=== PATIENT | male | born 1990 | race Caucasian/White ===

== ENCOUNTER 2016-12-19 09:02 | Emergency (ER) | payer OTHER ==
[~2016-12-19] VITALS: Ht 175.3 cm; Wt 59.5 kg
[2016-12-19 09:04] VITALS: TEMP 36.9; Ht 175.3 cm; Wt 59.5 kg
[2016-12-19] MEDS ORDERED: CEPH500C2 PO (09:53)
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
[2016-12-19 10:02] VITALS: BP 123/73; PULSE 81; O2SAT 98
== END 2016-12-19 10:02 | disposition home or self-care (01) ==
LOC: C.EDB 09:03 → C.EDA 10:02
DX: L73.9 Follicular disorder, unspecified (principal); Z87.891 Personal history of nicotine dependence; Z88.1 Allergy status to other antibiotic agents

== ENCOUNTER 2017-01-05 19:43 | Emergency (ER) | payer OTHER ==
[~2017-01-05] VITALS: Ht 175.3 cm; Wt 59.8 kg
[~2017-01-05 19:43] MED LIST: CEPH500C2 PO
[2017-01-05 19:50] VITALS: TEMP 37; Ht 175.3 cm; Wt 59.8 kg
[2017-01-05] MEDS ORDERED: PERMETHRIN 5% CR 60 GM TUBE EXT ONE (20:00)
[2017-01-05] MEDS ORDERED: ELMCR EXT (20:21)
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
[2017-01-05 20:50] VITALS: BP 120/66; PULSE 78; O2SAT 98
== END 2017-01-05 20:51 | disposition home or self-care (01) ==
LOC: C.EDB 19:44 → C.EDD 20:51
DX: R21 Rash and other nonspecific skin eruption (principal); B86 Scabies; G40.909 Epilepsy, unspecified, not intractable, without status epilepticus; Z87.828 Personal history of other (healed) physical injury and trauma; Z88.8 Allergy status to other drugs, medicaments and biological substances